=== PATIENT | male | born 1950 | race Caucasian/White ===

== ENCOUNTER 2019-02-04 12:06 | Outpatient (RCR) | payer OTHER, SELFPAY | END 2019-03-01 00:01 | PROVIDERS: Family Provider Emergency Medicine Emergency Medical Services; Visit Provider Emergency Medicine Emergency Medical Services | DX: J18.9 Pneumonia, unspecified organism (principal) | CPT/HCPCS: G0424 ×12 ==

== ENCOUNTER 2019-03-02 06:00 | Outpatient (RCR) | payer OTHER, SELFPAY | END 2019-04-01 23:59 | disposition home or self-care (01) | LOC: PULRHB 06:00 | PROVIDERS: Family Provider Emergency Medicine Emergency Medical Services; PCP Emergency Medicine Emergency Medical Services; Visit Provider Internal Medicine | DX: J44.9 Chronic obstructive pulmonary disease, unspecified (principal) | CPT/HCPCS: G0424 ==

== ENCOUNTER 2019-04-05 12:36 | Outpatient (RCR) | payer OTHER, SELFPAY | END 2019-04-30 23:59 | disposition home or self-care (01) | LOC: PULRHB 12:36 | PROVIDERS: Family Provider Emergency Medicine Emergency Medical Services; PCP Emergency Medicine Emergency Medical Services; Visit Provider Internal Medicine | DX: J44.9 Chronic obstructive pulmonary disease, unspecified (principal) | CPT/HCPCS: G0424 ==

== ENCOUNTER → 2019-08-29 08:14 | Outpatient (BNVA) | payer OTHER, SELFPAY | PROVIDERS: PCP Emergency Medicine Emergency Medical Services; Referring Provider Emergency Medicine Emergency Medical Services; Visit Provider Specialist | DX: G43.711 Chronic migraine without aura, intractable, with status migrainosus (principal) | CPT/HCPCS: 99204 ==

== ENCOUNTER → 2019-10-19 10:07 | Outpatient (BNVA) | payer OTHER, SELFPAY | PROVIDERS: PCP Emergency Medicine Emergency Medical Services; Visit Provider Anesthesiology | DX: G89.29 Other chronic pain (principal); M54.41 Lumbago with sciatica, right side; M54.9 Dorsalgia, unspecified; Z79.891 Long term (current) use of opiate analgesic | CPT/HCPCS: 99213; 99214 ==

== ENCOUNTER → 2019-10-20 09:09 | Outpatient (BNVA) | payer OTHER, SELFPAY | PROVIDERS: PCP Emergency Medicine Emergency Medical Services; Visit Provider Specialist | DX: G43.711 Chronic migraine without aura, intractable, with status migrainosus (principal); Z87.891 Personal history of nicotine dependence | CPT/HCPCS: 64615; 99213; J0585 ==

== ENCOUNTER → 2019-12-22 07:51 | Outpatient (BNVA) | payer OTHER, SELFPAY | PROVIDERS: PCP Emergency Medicine Emergency Medical Services; Visit Provider Anesthesiology | DX: G89.29 Other chronic pain (principal); M54.41 Lumbago with sciatica, right side; Z79.891 Long term (current) use of opiate analgesic | CPT/HCPCS: 62323; J1040; J3490 ==

== ENCOUNTER → 2020-01-12 09:59 | Outpatient (BNVA) | payer OTHER, SELFPAY | PROVIDERS: PCP Emergency Medicine Emergency Medical Services; Visit Provider Specialist | DX: G43.711 Chronic migraine without aura, intractable, with status migrainosus (principal); Z87.891 Personal history of nicotine dependence | CPT/HCPCS: 64615; J0585 ==

== ENCOUNTER → 2020-01-13 09:51 | Outpatient (BNVA) | payer OTHER, SELFPAY | PROVIDERS: PCP Emergency Medicine Emergency Medical Services; Visit Provider Anesthesiology | DX: G89.29 Other chronic pain (principal); M54.9 Dorsalgia, unspecified; M54.41 Lumbago with sciatica, right side; Z79.891 Long term (current) use of opiate analgesic | CPT/HCPCS: 99212; 99214 ==